=== PATIENT | female | born 1940 | race Two or more races ===

== ENCOUNTER 2020-02-11 15:21 | Outpatient (CLI) | payer OTHER | END 2020-02-11 15:33 | disposition home or self-care (01) | LOC: RAD 15:21 | PROVIDERS: ATTEND Obstetrics & Gynecology Gynecology | DX: M54.5 Low back pain (principal); S34.5XXA Injury of lumbar, sacral and pelvic sympathetic nerves, initial encounter ==

== ENCOUNTER 2022-06-29 10:33 | Outpatient (CLI) | payer OTHER | END 2022-06-29 10:36 | disposition home or self-care (01) | LOC: NUCLEAR 10:33 | PROVIDERS: ATTEND Internal Medicine | DX: I25.118 Atherosclerotic heart disease of native coronary artery with other forms of angina pectoris (principal); I11.9 Hypertensive heart disease without heart failure; E78.2 Mixed hyperlipidemia ==

== ENCOUNTER 2023-11-20 13:25 | Outpatient (CLI) | payer OTHER ==
[~2023-11-20 13:25] MED LIST: CITALOPRAM HBR20 MG; CRESTOR5 MG PO; FENOFIBRIC ACI135 MG PO; METOPROLOL SUCC50 MG PO; NORVASC2.5 M1; PLAVIX75 MG
== END 2023-11-20 13:40 | disposition home or self-care (01) ==
LOC: TOM 13:25
PROVIDERS: ATTEND Otolaryngology Otology & Neurotology
DX: J31.0 Chronic rhinitis (principal)

== ENCOUNTER 2024-05-20 09:58 | Outpatient (CLI) | payer OTHER | END 2024-05-20 10:05 | disposition home or self-care (01) | LOC: SONOGRAMA 09:58 | PROVIDERS: ATTEND Obstetrics & Gynecology Gynecology | DX: R10.11 Right upper quadrant pain (principal); R10.9 Unspecified abdominal pain ==

== ENCOUNTER 2024-11-18 09:54 | Outpatient (CLI) | payer OTHER | END 2024-11-18 10:01 | disposition home or self-care (01) | LOC: TOM 09:54 | PROVIDERS: ATTEND Internal Medicine | DX: R10.10 Upper abdominal pain, unspecified (principal); E78.1 Pure hyperglyceridemia; I11.9 Hypertensive heart disease without heart failure; Z95.1 Presence of aortocoronary bypass graft; I70.0 Atherosclerosis of aorta; E11.69 Type 2 diabetes mellitus with other specified complication; M81.0 Age-related osteoporosis without current pathological fracture; K21.9 Gastro-esophageal reflux disease without esophagitis; F32.1 Major depressive disorder, single episode, moderate | CPT/HCPCS: 74177; Q9965 ==

== ENCOUNTER 2024-11-18 09:57 | Outpatient (CLI) | payer OTHER ==
[2024-11-18 11:15] LABS: CREATININE SERUM 0.94 mg/dL (0.55-1.02)
== END 2024-11-18 09:59 | disposition home or self-care (01) ==
LOC: LAB 09:57
PROVIDERS: ATTEND Internal Medicine
DX: I11.9 Hypertensive heart disease without heart failure (principal)